=== PATIENT | female | born 1995 | race Caucasian/White ===

== ENCOUNTER 2018-10-19 17:59 | Emergency (ER) | payer OTHER ==
[2018-10-19 18:00] VITALS: BMI 23.2
[2018-10-19 18:12] VITALS: BP 93/59; PULSE 78; RESP 20; TEMP 98.1; O2SAT 98
[2018-10-19] MEDS ORDERED: DiphenhydrAMINE 50 mg/ml Inj IM STA (18:41)
--- NOTE | 2018-10-19 18:51 | C.PDOC ---
History Of Present Illness 23 yo female s/p extraction of 4 wisdom teeth on 10/17/18, taking amoxicillin and tylenol #3, c/o itchy rash to upper arms, anterior chest wall, abdomen since yesterday. denies any difficulty breathing or swallowing. no known hx of medication allergies. Time Seen by Provider: 10/19/18 18:23 Chief Complaint (Nursing): Abnormal Skin Integrity History Per: Patient History/Exam Limitations: no limitations Onset/Duration Of Symptoms: Days (2) Current Symptoms Are (Timing): Still Present Quality Of Symptoms: Itching Severity: Mild Past Medical History Reviewed: Historical Data, Nursing Documentation, Vital Signs Vital Signs: Last Vital Signs Temp 98.1 F 10/19/18 18:08 Pulse 78 10/19/18 18:08 Resp 20 10/19/18 18:08 BP 93/59 L 10/19/18 18:08 Pulse Ox 98 10/19/18 18:08 - Medical History PMH: No Chronic Diseases Denies: Chronic Kidney Disease Other Surgeries: dental extraction Family History: States: Unknown Family Hx - Social History Hx Tobacco Use: No Hx Alcohol Use: Yes Hx Substance Use: No - Immunization History Hx Tetanus Toxoid Vaccination: Yes Hx Influenza Vaccination: Yes Hx Pneumococcal Vaccination: No Review Of Systems Constitutional: Negative for: Fever, Chills ENT: Negative for: Other (difficulty swallowing ) Respiratory: Negative for: Shortness of Breath Gastrointestinal: Negative for: Nausea, Vomiting, Abdominal Pain Skin: Positive for: Rash (itchy; upper arms, anterior chest wall and abdomen ) Neurological: Negative for: Weakness, Numbness Physical Exam - Physical Exam Appears: Non-toxic, No Acute Distress Skin: Warm, Dry, Rash (upper arms, anterior chest wall and abdomen fine urticarial rash) Head: Atraumatic, Normacephalic Eye(s): bilateral: Normal Inspection Ear(s): Bilateral: Normal Nose: Normal Oral Mucosa: Moist Tongue: Normal Appearing, No Swelling Lips: Normal Appearing, No Swelling Teeth: Other (extraction sites: no discharge or swelling ) Gingiva: Normal Appearing Throat: No Erythema, No Exudate Neurological/Psych: Oriented x3, Normal Speech, Normal Motor, Normal Sensation ED Course And Treatment O2 Sat by Pulse Oximetry: 98 (RA) Pulse Ox Interpretation: Normal Medical Decision Making Medical Decision Making: Plans: -- benadryl -- POC urine pt with fine urticarial rash to upper arms, upper chest, abdomen. no swelling to lips, tongue or uvula. no wheezing. unclear if from amox or codeine. no sign of swelling at sites of extractions. pt advised to stop amoxicillin, stop tylenol #3, take benadryl and plain tylenol (if needed for pain) and contact oral surgeon om Sunday. 1924 pt feeling less itchy and rash less erythematous. d/c home, f/u oral surgeon on sunday. Disposition - Disposition Referrals: Driss Sne MD [Medical Doctor] - Disposition: HOME/ ROUTINE Disposition Time: 19:26 Condition: IMPROVED Additional Instructions: Stop taking amoxicillin. Stop taking Tylenol with codeine. Use plain Tylenol for bermudez if needed. Take Benadyl (diphenhydramine) by mouth every 6 hours for itching- Makes you sleepy. Follow up with oral surgeon on Sunday. Retun immediately to ER for any difficulty swallowing, breathing, swelling to lips, tongue or mouth. Discuss with your primary care doctor about a referral to [facility]. Prescriptions: Acetaminophen [Tylenol 325mg tab] 650 mg PO Q6 #30 tab DiphenhydrAMINE [Benadryl] 25 mg PO Q6 #40 cap Instructions: Hives (DC) Forms: [facility] (Azeri), General Discharge Instructions - Clinical Impression Clinical Impression: Allergic urticaria - PA / [employer] TECHNICIAN / Resident Statement / has reviewed & agrees with the documentation as recorded. - Scribe Statement The provider has reviewed the documentation as recorded by the Eli Chappell Do All medical record entries made by the Scribe were at my direction and personally dictated by me. I have reviewed the chart and agree that the record accurately reflects my personal performance of the history, physical exam, medical decision making, and the department course for this patient. I have also personally directed, reviewed, and agree with the discharge instructions and disposition.
[2018-10-19] MEDS ORDERED: DiphenhydrAMINE 50 mg/ml Inj ONE (19:07)
== END 2018-10-19 19:39 | disposition home or self-care (01) ==
LOC: C.ER 17:59
DX: L50.0 Allergic urticaria (principal)
CPT/HCPCS: 96372; 99283; J1200